=== PATIENT | male | born 1960 | race African-American/Black ===

== ENCOUNTER 2021-01-15 17:21 | Emergency (ER) | payer OTHER ==
[2021-01-15 17:39] VITALS: BMI 27.1
[2021-01-15] MEDS ORDERED: LIDOCAINE 5% TOPICAL PATCH TP ONE (19:03)
[2021-01-15] MEDS ORDERED: diazePAM 5 MG TABLET PO ONE (19:03)
[2021-01-15] MEDS ORDERED: KETOROLAC TROMETHAMINE 15 MG/ML VIAL IM ONE (19:03)
[2021-01-15] MEDS ORDERED: diazePAM 5 MG TABLET ONE (19:46)
[2021-01-15] MEDS ORDERED: KETOROLAC TROMETHAMINE 15 MG/ML VIAL ONE (19:46)
[2021-01-15] MEDS ORDERED: LIDOCAINE 5% TOPICAL PATCH ONE (19:46)
[2021-01-15 20:44] VITALS: BP 176/89; PULSE 89; TEMP 98.5
[2021-01-15] MEDS ORDERED: LIDOCAINE PATCH REMOVAL MC SCH (22:00)
== END 2021-01-15 20:51 | disposition home or self-care (01) ==
LOC: JER 17:21
PROC: 3E0233Z Introduction of Anti-inflammatory into Muscle, Percutaneous Approach (ICD-10-PCS; principal; 2021-01-15)
DX: M54.42 Lumbago with sciatica, left side (principal)
CPT/HCPCS: 99284-25

== ENCOUNTER 2021-06-28 12:37 | Emergency (ER) | payer OTHER ==
[2021-06-28 12:49] VITALS: TEMP 98.1; BMI 27.1
[2021-06-28] MEDS ORDERED: ASPIRIN 81 MG CHEWABLE TABLETS PO ONE (13:09)
[2021-06-28] MEDS ORDERED: ATORVASTATIN CA 80 MG TABLET (FP) PO ONE (13:09)
[2021-06-28] MEDS ORDERED: ASPIRIN 81 MG CHEWABLE TABLETS ONE ×2 (13:14→13:16)
[2021-06-28] MEDS ORDERED: ATORVASTATIN CA 80 MG TABLET (FP) ONE (13:15)
[2021-06-28 13:42] LABS: BASO % 1.2 % (0-2.0); EOS % 2.8 % (0-4.5); HEMATOCRIT 44.5 % (35.4-49); HEMOGLOBIN 15.1 GM/dL (11.7-16.9); LYMPH % 34.4 % (8-40); MCH 32.1 pg (25.7-33.7); MEAN CELL VOLUME 94.5 fl (80-96); MONO % 7.9 % (3.8-10.2); NEUT % 53.7 % (42.8-82.8); PLATELET COUNT 412 10^3/uL (134-434); RBC 4.71 M/mm3 (4.00-5.60); WHITE BLOOD COUNT 6.1 K/mm3 (4.0-10.0)
[2021-06-28 13:45] LABS: INR 0.94 (0.83-1.09); PROTHROMBIN TIME (PATIENT) 11.5 SEC (9.7-13.0)
[2021-06-28 14:12] LABS: CALCIUM 9.3 mg/dL (8.5-10.1)
[2021-06-28 14:13] LABS: ALBUMIN 3.6 g/dl (3.4-5.0)
[2021-06-28 14:15] LABS: CREATININE 1.2 mg/dL (0.55-1.3)
[2021-06-28 14:17] LABS: BILIRUBIN,TOTAL 0.5 mg/dL (0.2-1); TOT PROT 7.8 g/dl (6.4-8.2)
[2021-06-28 17:00] VITALS: BP 167/80; PULSE 82
[2021-06-28] MEDS ORDERED: INSULIN (LEVEMIR) 100 UNITS/ML UNITS SQ SCH (22:00)
[2021-06-28] MEDS ORDERED: GABAPENTIN 300 MG CAPSULE PO SCH (22:00)
[2021-06-29] MEDS ORDERED: INSULIN SLIDING SCALE (NOVOLOG) 1 VIAL SQ SCH (07:00)
[2021-06-29] MEDS ORDERED: ENOXAPARIN NA (PORCINE) 40 MG/0.4 ML DISP.SYRIN SQ SCH (10:00)
[2021-06-29] MEDS ORDERED: LOSARTAN POTASSIUM 50 MG TABLET PO SCH (10:00)
[2021-06-29] MEDS ORDERED: CLOPIDOGREL BISULFATE 75 MG TABLET (FP) PO SCH (10:00)
[2021-06-29] MEDS ORDERED: ATORVASTATIN CA 80 MG TABLET (FP) PO SCH (22:00)
== END 2021-06-28 18:25 | disposition left against medical advice (07) ==
LOC: JER 12:37
DX: I63.9 Cerebral infarction, unspecified (principal)
CPT/HCPCS: 36415; 71046-TC-FY; 80053; 82550; 82553; 84484; 85025; 85610; 85730; 86850; 86900; 86901; 93005; 93010; 99284-25; C9803; U0003; U0005